=== PATIENT | female | born 1975 | race Caucasian/White ===

== ENCOUNTER 2022-07-06 10:57 | Emergency (ER) | payer OTHER, SELFPAY ==
--- NOTE | ~2022-07-06 | XR_ITS ---
EXAMINATION: XR HIP, RIGHT CLINICAL INFORMATION: Right hip pain. COMPARISON: None TECHNIQUE: Two views of the right hip. FINDINGS: Minimal bilateral hip degenerative joint changes are seen. There is no acute fracture or dislocation. The bony pelvis is intact. Partial visualization of posterior lumbar fusion hardware. XR/XR hip RT w PEL1V IMPRESSION: Minimal bilateral hip osteoarthritis. No acute fracture.
--- NOTE | ~2022-07-06 | XR_ITS ---
EXAMINATION: XR KNEE, RIGHT CLINICAL INFORMATION: Right knee pain. COMPARISON: None TECHNIQUE: Four views of the right knee. FINDINGS: Mild medial femoral-tibial and patellofemoral degenerative joint changes are seen. There is no acute fracture, dislocation or joint effusion. The soft tissues are unremarkable. XR/XR knee RT 4V IMPRESSION: Mild degenerative joint changes most consistent with osteoarthritis. No acute abnormality.
[2022-07-06 11:16] VITALS: BP 137/83; PULSE 76; RESP 17; TEMP 36.6; O2SAT 98; BMI 46.6
--- NOTE | 2022-07-06 13:45 | ED_ITS ---
HPI - Extremity Injury (Lower) General Chief Complaint: Extremity Injury, Lower Stated Complaint: R hip and knee pain Time Seen by Provider: 07/06/22 13:20 Source: patient Mode of arrival: ambulatory Limitations: no limitations History of Present Illness HPI Narrative: Patient is a 46-year-old female presenting with 10/10 nonradiating right hip and right knee pain for the past 3 months. The describes the pain as burning and sharp. Patient states that due to her knee pain she has been limping has been worsening her hip pain, which has been leading to low back pain. She reports movement, and weight-bearing activities worsen her pain. At rest her pain decreases to an 8/10. Patient reports she was seen by her PCP and Ortho at [facility]. She states that she was not eligible for injections due to lack of cartilage in her knee. She was diagnosed with osteoarthritis with wfny-ge-[id number] of right knee. Patient has been taking pdny-eyg-vajkrla Tylenol and ibuprofen. Patient states that she has fallen a few times in the past 3 months due to the pain, though denies any weakness. Patient endorses difficulty getting in and out of the car. Patient denies any history of trauma. No head strike or LOC with falls. Patient denies any loss of bowel or bladder function, and any saddle anesthesia. Patient able to ambulate with a steady gait, though limping on the right side. MD complaint: hip injury and knee injury Onset (ago): month(s) (3) Injury: Right: hip and knee Severity: severe Severity scale (1-10): >10 Relieving factors: NSAID Exacerbating factors: weight bearing, movement and palpation Associated symptoms: able to partially bear weight and ambulatory Other symptoms: none Treatments prior to arrival: NSAIDS Related Data Previous Rx's Medication Instructions Recorded prednisone 20 mg tablet 40 mg PO DAILY 5 days #10 tabs 07/06/22 Allergies Allergy/AdvReac Type Severity Reaction Status Date / Time Unable to Assess Allergy Unverified 07/06/22 13:28 Review of Systems Review of Systems: Constitutional : No Weight loss, No Fever, No Chills, No Fatigue, No Malaise ENT/Mouth : No sore throat, No Rhinorrhea Eyes: No Eye Pain, No Swelling, No Redness Cardiovascular : No Chest Pain, No SOB, No Dyspnea on Exertion, No Orthopnea, No Edema, No Palpitations Respiratory : No Cough, No Sputum, No Wheezing Gastrointestinal : No Nausea, No Vomiting, No Diarrhea, No Constipation, No abdominal Pain, No Hematochezia, No Melena Genitourinary : No Dysuria, No Urinary Frequency, No Hematuria, Musculoskeletal : + right hip and knee joint pain, No Myalgias, No Joint Swe lling Skin : No Skin Lesions, No rash Neuro : No Weakness, No Numbness, No Dizziness, No Headache Psych : No Anxiety/Panic, No Depression Heme/Lymph: No Bruising, No Bleeding,No Lymphadenopathy All other systems reviewed and are negative Yes all other systems are reviewed and are negative [facility] Past Medical History Attestation statement: The following information was validated with the patient. Source: old records reviewed and nursing notes reviewed Social History Social History Advance Directives: No Advance Directives Information Provided: No Physical Exam Vital Signs: Vital Signs: Last Vital Signs Temp 98 F 07/06/22 11:16 Pulse 76 07/06/22 11:16 Resp 17 07/06/22 11:16 BP 137/83 07/06/22 11:16 Pulse Ox 98 07/06/22 11:16 O2 Del Method 07/06/22 11:16 BMI result Body Mass Index 46.6 vss Appearance: Alert.? Oriented X3.? No acute distress.?Exam limted due to body habitus. Head: Normocephalic, atraumatic, no step-offs or deformities Eyes: Pupils equal, round and reactive to light.? Neck: Normal inspection.? Neck supple.? CVS: Normal heart rate and rhythm.? Pulses normal.? Respiratory: No respiratory distress.? Breath sounds normal.? Abdomen: Soft and nontender.? Skin: Skin warm and dry.? Normal skin color.? Normal skin turgor.? Extremities: No lower extremity edema.? No calf ttp. 5/5 strength to bilateral upper and lower extremities. Full rom to b/l knees and hips, no overlying skin changes. Right hip tender to palpation in the inguinal crest/SI region. Pain to palpation of proximal portion of tibia. Patela midline. -Valgus/Valrus stress, - Anterior/Posterior drawer. +Dm test. Back: No midline tenderness, no C-spine tenderness, full range of motion, no CVA tenderness bilaterally Neuro: Oriented X 3.? No motor deficit.? No sensory deficit. Steady gait, able to ambulate with a right sided limp. Course Reevaluation(s) Reevaluation #1: X-ray of the knee showing osteoarthritis. X-ray of bilateral hips with osteoarthritis as well. At this time patient will be discharged home on prednisone and pain meds. Advised return with new or worsening symptoms. Outlined worrisome signs and symptoms on discharge. Comfortable discharge home. Time: 14:24 MDM - Extremity Injury (Lower) MDM Narrative Medical decision making narrative: 1:30pm Patient is a 46 year old female with a recent diagnosis of osteoarthritis presenting with 10/10 right knee and hip pain. Patient takes OTC acetaminophen at home and uses a brace. DDX: this is likely osteoarthritis of the right hip and right knee. A soft tissue injury is possible, though based off HPI and exam, osteoarthritis is more likely. An X-ray of the hip and knee where ordered to rule out fracture. No signs of threatened limb, septic joint, acute ligament or tendon injury. No signs of cauda equina or epidural abscess. Plan: Patient will be given Toradol for pain, an x-ray of the right hip and knee will be obtained. I suspect patient will be discharged home with prednisone and pain control. Medical Records Attestation: I reviewed the patient's medical records. Lab Data Attestation: I reviewed the patient's lab results. Imaging Data Knee X-Ray: Radiologist's impression: FINDINGS: Mild medial femoral-tibial and patellofemoral degenerative joint changes are seen. There is no acute fracture, dislocation or joint effusion. The soft tissues are unremarkable.? XR/XR knee RT 4V IMPRESSION: Mild degenerative joint changes most consistent with osteoarthritis. No acute abnormality. Hip and Pelvis X-ray : Radiologist's impression: FINDINGS: Minimal bilateral hip degenerative joint changes are seen. There is no acute fracture or dislocation. The bony pelvis is intact. Partial visualization of posterior lumbar fusion hardware.? XR/XR hip RT w PEL1V IMPRESSION: Minimal bilateral hip osteoarthritis. No acute fracture. Critical Care Time Critical Care Time Critical Care Time: No Discharge Plan Discharge Clinical Impression: Osteoarthritis of right knee, Osteoarthritis of right hip Patient Disposition: Home, Self-Care Instructions: Osteoarthritis (ED), R.I.C.E. Treatment (ED), Steroid Joint Injection (DC), Knee Replacement (DC) Additional Instructions: You were seen in the Emergency department for chronic right sided hip and knee pain. This is likely due to your osteoarthritis. Please continue to use your brace, and take ibuprofen every 6 hours and acetaminophen every 4 hours. X-rays were performed which rule out any fracture or dislocation. Pain persists he may require an MRI for further evaluation and treatment. Provided [facility], Orthopedics, Pain management please follow-up for further workup and management. If you develop new or worsening symptoms please return to the emergency department or call 911. ?XR/XR knee RT 4V IMPRESSION: Mild degenerative joint changes most consistent with osteoarthritis. No acute abnormality. ? XR/XR hip RT w PEL1V IMPRESSION: Minimal bilateral hip osteoarthritis. No acute fracture. ? Prescriptions: New prednisone 20 mg tablet 40 mg PO DAILY 5 Days Qty: 10 0RF Referrals: [facility] [place] [facility] [[place] Group] [facility] [Provider Group] Hay Damon MD [Physician] - (Chronic 06/28 hip and knee pain) Stand Alone Forms: Work/School Release
[2022-07-06] MEDS: Ketorolac Tromethamine 30 MG/ML VIAL IM (14:54)
[2022-07-06] MEDS: Acetaminophen 325 MG TABLET 975 MG PO (14:55)
== END 2022-07-06 15:06 | disposition home or self-care (01) ==
PROVIDERS: Emergency Provider Emergency Medicine; PCP Internal Medicine
DX: M17.11 Unilateral primary osteoarthritis, right knee (principal); M16.11 Unilateral primary osteoarthritis, right hip; M25.552 Pain in left hip; M25.551 Pain in right hip
CPT/HCPCS: 73502; 73564; 96372; 99283; 99284; J1885

== ENCOUNTER 2023-07-26 09:13 | Emergency (ER) | payer OTHER, SELFPAY ==
--- NOTE | ~2023-07-26 | XR_ITS ---
EXAMINATION: XR KNEE, RIGHT CLINICAL INFORMATION: Pain COMPARISON: None available. TECHNIQUE: Four views of the right knee. FINDINGS: No fracture or joint effusion. Alignment is anatomic. There is moderate narrowing of the medial and patellofemoral joint compartments with associated marginal osteophytes. No abnormal soft tissue calcification. XR/XR knee RT 4V IMPRESSION: Moderate osteoarthritis of the medial and patellofemoral joint compartments.
[2023-07-26 09:24] VITALS: BP 134/77; PULSE 73; RESP 20; TEMP 36.2; O2SAT 97; BMI 47.1
[2023-07-26] MEDS: Ketorolac Tromethamine 30 MG/ML VIAL IM (11:15)
--- NOTE | 2023-07-26 11:22 | ED_ITS ---
HPI - General Adult General Chief complaint: Extremity Injury, Lower Stated complaint: R knee pain Time Seen by Provider: 07/26/23 09:48 Source: patient and RN notes reviewed Mode of arrival: ambulatory Limitations: no limitations History of Present Illness HPI narrative: This is a 47-year-old female, with no known past medical history, presenting to the emergency department with complaints of acute on chronic right knee pain. Patient has had no recent trauma or injury to her right knee. No recent falls. Patient states that she has had years of right knee pain, which she is seen [facility] for. 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 She states that she has gotten multiple knee injections without any relief. She has never had an MRI of her right knee. Patient has been taking Tylenol for her symptoms which has provided her with minimal relief. Denies any fevers, chills, or calf pain. No other complaints or concerns at this time. MD complaint: Acute on chronic right knee pain Onset (ago): day(s) Location: lower extremity Radiation: non-radiation Severity: moderate Quality: aching Pain Consistency: constant Relieving factors: none Exacerbating factors: none Associated symptoms: denies other symptoms Treatments prior to arrival: none Related Data Previous Rx's Medication Instructions Recorded prednisone 20 mg tablet 40 mg (2 x 20 mg) PO DAILY 5 days 07/06/22 #10 tabs Allergies Allergy/AdvReac Type Severity Reaction Status Date / Time No Known Allergies Allergy Verified 07/26/23 09:28 Review of Systems Review of Systems: Yes all other systems are reviewed and are negative PMFSH Past Medical History Attestation statement: The following information was validated with the patient. Social History Social History Advance Directives: No Physical Exam ED Vital Signs: Vital Signs - 24 hr 07/26/23 09:24 Temperature 97.2 F Pulse Rate 73 Respiratory Rate 20 Blood Pressure 134/77 Pulse Oximetry 97 Oxygen Delivery Method Room Air BMI result Body Mass Index 47.1 Const Other: General: Awake, alert, and oriented X3. No acute distress. HEENT: Normal inspection CVS: Normal heart rate and rhythm. Pulses normal. Respiratory: No respiratory distress Skin: Warm, dry, no rashes noted to exposed skin. Normal skin color. Normal skin turgor. Extremities: Right knee with tenderness to palpation along the right lateral joint line and inferior patellar region. Full range of motion of the left knee without difficulty. Pain with anterior drawer test and Apley grind test. No overlying skin changes, warmth. No calf tenderness. No palpable cords. Neuro: Oriented X 3. No motor deficit. No sensory deficit. Medications Administered Discontinued Medications Generic Name Dose Route Start Last Admin Trade Name Vaibhavq PRN Reason Stop Dose Admin Ketorolac Tromethamine 30 mg 07/26/23 11:10 07/26/23 11:15 Ketorolac Tromethamine 30 Mg/Ml Vial IM 07/26/23 11:11 30 mg ONCE ONE Administration Medical Decision Making Medical Decision Making [facility] Narrative: This is a 47-year-old female presenting to the emergency department for evaluation of acute on chronic right knee pain times 4 days. On arrival, vital signs within normal limits. Patient has tenderness with Apley grind and anterior drawer test. Concerning for possible meniscal injury versus osteoarthritis. No calf tenderness. She states that she has never had an MRI performed. She was previously seen by [facility], has never been seen by [facility]. Patient medicated with Toradol 30 mg IM in department. X-ray was performed showing osteoarthritis. Discussed these results with bernadette ent. Discharged with recommendations on taking Tylenol as needed as she is unable to take ibuprofen at home due to history of gastritis. Given referral, given return precautions. Patient stable for discharge. Differential Diagnosis Differential Diagnoses: The differential diagnosis associated with the presentation includes Osteoarthritis, knee strain, sprain, contusion, fracture-unlikely Radiology Impression Discussion of test interpretation with radiology: I have reviewed the radiologist's reading. Radiologist Impression: EXAMINATION: XR KNEE, RIGHT CLINICAL INFORMATION: Pain COMPARISON: None available. TECHNIQUE: Four views of the right knee. FINDINGS: No fracture or joint effusion. Alignment is anatomic. There is moderate narrowing of the medial and patellofemoral joint compartments with associated marginal osteophytes. No abnormal soft tissue calcification. XR/XR knee RT 4V IMPRESSION: Moderate osteoarthritis of the medial and patellofemoral joint compartments. Dictated By: Ada Wiley MD Discharge Plan Discharge Clinical Impression: Osteoarthritis of right knee Patient Disposition: Home, Self-Care Instructions: Osteoarthritis (ED) Additional Instructions: You were seen in the emergency room today due to right knee pain. We had medicated you with Toradol. Your right knee x-ray reveals moderate osteoarthritis. Please continue taking Tylenol as directed as needed for pain. Here ice can also help. Gentle range of motion and massage can also help. I am also giving your referral to Orthopedics, please call today to make an appointment. If any new or worsening symptoms occur, including but not limited to worsening knee pain, redness, swelling. Prescriptions: No Action prednisone 20 mg tablet 40 mg PO DAILY 5 Days Qty: 10 0RF [place] [facility] [place] [facility] [place] Group] Interventions: ED Discharge Assessment Last Done: 07/26/23 11:35 Discharge Date/Time: 07/26/23 11:37
== END 2023-07-26 11:37 | disposition home or self-care (01) ==
PROVIDERS: Emergency Provider Student in an Organized Health Care Education/Training Program
DX: M17.11 Unilateral primary osteoarthritis, right knee (principal); M25.561 Pain in right knee; E66.01 Morbid (severe) obesity due to excess calories; Z68.42 Body mass index [BMI] 45.0-49.9, adult
CPT/HCPCS: 73564; 96372; 99283; 99284; J1885

== ENCOUNTER 2023-08-16 12:20 | Outpatient (AMB) | payer OTHER, SELFPAY ==
--- NOTE | 2023-08-16 12:23 | MHC.OFFVIS ---
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 She describes her pain as sharp in nature. She did injure her knee over 1 year ago. She twisted her knee and had acute onset of pain. Since that time she has had both cortisone injections and viscosupplementation injections which gave her minimal relief. She has also done physical therapy for 12 weeks over the last 6 months which aggravated her pain. She has tried Tylenol and anti-inflammatory medicines which gave her minimal relief. She states that her right knee will give out several times per day. 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 Physical Exam Vital Signs: BMI result Body Mass Index 47.0 Const Other: Well-nourished well-developed very friendly female awake alert and oriented x3 in no acute distress Extrem Other: Bilateral lower extremity examination shows good capillary refill, no skin lesions noted, normal sensation light touch Right knee examination shows a minimal effusion, tenderness along her medial joint line, positive Dm's test, no instability Results Reviewed Results Reviewed: X-rays of the patient's right knee show mild joint space narrowing, no acute bony abnormalities Assessment & Plan Assessment & Plan (1) Right knee pain: Code(s): M25.561 - Pain in right knee Plan: Ms. Jacob presents with right knee pain and mechanical symptoms possibly due to a tear of her medial meniscus. Thus, I will send the patient for MRI of her right knee for further evaluation. I will see her back once the MRI is completed to discuss the findings and treatment options. Feel free to call me at any time should questions regarding her orthopedic management arise. Thank you very much for asking me to see this very friendly patient. I spent 22 minutes in reviewing the patient's records and imaging studies, seeing the patient and documenting in the medical record. Orders: Orders MR knee RT wo con Today M25.561 - Pain in right knee Coding Level of Care Code New Pt Level 2 (33328) Diagnoses Right knee pain M25.561
[2023-08-16 12:24] VITALS: BMI 47.0
== END 2023-08-16 12:54 | disposition home or self-care (01) ==
PROVIDERS: Visit Provider Orthopaedic Surgery
DX: M25.561 Pain in right knee (principal)
CPT/HCPCS: 99202

== ENCOUNTER → 2023-08-16 12:20 | Outpatient (BNVA) | payer OTHER, SELFPAY | PROVIDERS: Visit Provider Orthopaedic Surgery | DX: M25.561 Pain in right knee (principal) | CPT/HCPCS: 99202 ==

== ENCOUNTER 2023-08-22 13:16 | Outpatient (REF) | payer OTHER, SELFPAY ==
--- NOTE | ~2023-08-22 | MR_ITS ---
EXAMINATION: MR KNEE WITHOUT CONTRAST, RIGHT CLINICAL INFORMATION: Pain in the right knee. COMPARISON: Radiograph dated 07/26/2023. TECHNIQUE: MRI of the knee without contrast was performed using routine sequences on a high-field scanner. FINDINGS: MENISCI: Medial Meniscus: Posterior root is torn with partial medial extrusion of the body. A gap of 8 mm is present at the root avulsion. Degenerative intrasubstance signal is present within the medial meniscal body. Lateral Meniscus: There is ill-defined increased signal intensity at the undersurface of the posterior horn near the root, suggestive of undersurface partial tear with surrounding fraying. LIGAMENTS: Cruciate: PCL is thickened with increased intrasubstance signal. ACL is intact. Collateral: Intact EXTENSOR MECHANISM AND OTHER TENDONS: Intact tendinosis is evident at the origin of the medial head of the gastrocnemius. ARTICULAR CARTILAGE/BONE: Patellofemoral Compartment: There is mild nonuniform chondral thinning at the patella with small full-thickness fissures at the median ridge and moderate size marginal osteophytes. Additional [id number] nonuniform chondral thinning is present in the central trochlea with full-thickness fissures and underlying cortical irregularity as well as small marginal osteophytes. Medial Compartment: Focal high-grade cartilage loss at the medial femoral condyle weightbearing surface measures 1.2 x 0.9 cm in area and is associated with underlying cortical irregularity, sclerosis, and subchondral edema. There is more moderate surrounding cartilage loss in this region and [id number] nonuniform chondral thinning at the medial tibial plateau. Moderate-sized marginal osteophytes. Lateral Compartment: Small marginal osteophytes. Mild chondral thinning is present at the posterior margin of the lateral tibial plateau with minimal subchondral edema signal. Small foci of subcortical cystic change are present in the lateral femoral condyle adjacent to the intercondylar notch. JOINT FLUID AND BURSAE: Trace joint fluid is within normal limits. No effusion. Small rounded fluid signal foci along the medial margin of the tibial plateau may correspond to ganglion cysts or mild pes anserine bursitis. Trace fluid at a Brown's cyst. MR/MR knee RT wo con IMPRESSION: 1. Posterior root avulsion of the medial meniscus with partial extrusion of the meniscal body. 2. Omhd-jf-nksxzmet medial and patellofemoral compartment osteoarthritis. More minimal lateral compartment osteoarthritis. 3. Probable small undersurface partial tear of the posterior horn of the lateral meniscus near the root. 4. Thickened PCL with increased intrasubstance signal, most consistent with a mucoid degeneration.
== END 2023-08-22 13:17 | disposition home or self-care (01) ==
LOC: HO.MRI 13:16
PROVIDERS: Visit Provider Orthopaedic Surgery
DX: M25.561 Pain in right knee (principal)
CPT/HCPCS: 73721

== ENCOUNTER 2023-08-31 07:55 | Outpatient (AMB) | payer OTHER, SELFPAY ==
--- NOTE | 2023-08-31 07:59 | MHC.OFFVIS ---
Intake Vital Signs 08/31/23 08:00 Height 5 ft 2 in Weight 257 lb BMI 47.0 Intake Visit Reasons: ov- MRI Knee RT review Intake Note: Meliza is a 47 year old female who presents today for a MRI review of her right knee. She describes her right knee pain as sharp and severe in nature. Most of the pain is along the medial aspect of her knee. She did injure her right knee several years ago. She twisted her knee and had acute onset of pain. She has had injections in the past which gave her minimal relief. She has also done physical therapy which aggravated her pain. She states that her right knee will give out several times per day. 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 Exam Vital Signs: BMI result Body Mass Index 47.0 Const Other: Well-nourished well-developed very friendly female awake alert and oriented x3 in no acute distress Extrem Other: Bilateral lower extremity examination shows good capillary refill, no skin lesions noted, normal sensation light touch Right knee examination shows a minimal effusion, minimal crepitus with range of motion, tenderness along her medial joint line, positive Dm's test, no instability Results Reviewed Results Reviewed: MRI of the patient's right knee shows mild diffuse degenerative changes as well as a tear of her medial meniscus Assessment & Plan Assessment & Plan (1) Right knee pain: Code(s): M25.561 - Pain in right knee Plan Ms. Jacob presents with right knee pain and mechanical symptoms due to a tear of her medial meniscus. I had a lengthy discussion with the patient regarding the treatment options. At this point the patient's symptoms are tolerable to her. Activity modifications were discussed at length with the patient. If her symptoms do worsen in the future we will further discuss the risks and benefits of right knee arthroscopic surgery. Feel free to call me at any time should questions regarding her orthopedic management arise. I spent 22 minutes in reviewing the patient's records and imaging studies, seeing the patient and documenting in the medical record. Coding Level of Care Code Est Pt Level 2 (48255) Diagnoses Right knee pain M25.561
[2023-08-31 08:00] VITALS: BMI 47.0
== END 2023-08-31 08:33 | disposition home or self-care (01) ==
PROVIDERS: Visit Provider Orthopaedic Surgery
DX: M25.561 Pain in right knee (principal)
CPT/HCPCS: 99212

== ENCOUNTER → 2023-08-31 07:55 | Outpatient (BNVA) | payer OTHER, SELFPAY | PROVIDERS: Visit Provider Orthopaedic Surgery | DX: M25.561 Pain in right knee (principal) | CPT/HCPCS: 99212 ==

== ENCOUNTER 2024-03-11 08:12 | Emergency (ER) | payer OTHER, SELFPAY ==
[2024-03-11] VITALS (7 sets, daily range): BP systolic 116–128; BP diastolic 65–86; PULSE 70–105; RESP 14–16; TEMP 36.5–37.1; O2SAT 95–98; BMI 42.0
--- NOTE | ~2024-03-11 | CT_ITS ---
EXAMINATION: CT ABDOMEN AND PELVIS WITHOUT CONTRAST CLINICAL INFORMATION: Abdominal pain nausea vomiting COMPARISON: X-ray the pelvis and right hip June 2022. TECHNIQUE: Multidetector volumetric imaging was performed from the superior aspect of the liver through the pubic symphysis. Sagittal and coronal reformatted images were obtained on the technologist's workstation. This CT examination was performed using dose optimization techniques as appropriate, variously including the following: *Automated exposure control *Adjustment of mA and/or kV according to patient size (this includes techniques or standardized protocols for targeted exams where dose is matched to indication/reason for exam; i.e. extremities or head) *Use of iterative reconstruction technique DLP: 804 mGy-cm FINDINGS: LUNG BASES: The visualized lung bases are unremarkable. LIVER, GALLBLADDER, AND BILIARY TREE: The liver is normal in size, shape, and attenuation. No focal hepatic lesion or biliary ductal dilatation is present. The gallbladder is unremarkable with no evidence of radiopaque gallstones, gallbladder wall thickening, or obvious pericholecystic inflammatory changes. PANCREAS: Unremarkable. SPLEEN: Unremarkable. ADRENAL GLANDS: Unremarkable. KIDNEYS AND URETERS: The kidneys are normal in size, shape, and attenuation. No hydronephrosis, hydroureter, or calculi seen. No perinephric stranding. BLADDER: Unremarkable. GASTROINTESTINAL TRACT: Small hiatal hernia. Postsurgical changes of the stomach small bowel normal. Large bowel partially fluid-filled otherwise unremarkable. Appendix normal. ABDOMINAL WALL: No significant hernia is appreciated. LYMPH NODES: Normal. VASCULAR: Unremarkable. PELVIC VISCERA: Radiopaque intrauterine device noted. OSSEOUS STRUCTURES: Postoperative changes related to L4-L5 fusion hardware in place and interbody spacer Spondylosis of the partially visualized dorsal spine and upper lumbar spine Right hip: Mild to moderate osteoarthritis manifested by marginal osteophytes and acetabular subchondral cysts and nonuniform joint space narrowing most evident anteriorly. CT/CT abdomen pelvis wo IV con IMPRESSION: 1. No acute abnormality. 2. Postsurgical changes of the stomach. 3. Small hiatal hernia. 4. Osteoarthritis of the left hip with degenerative changes progressed compared to June 2022 and spondylosis of the thoracolumbar spine. Postoperative changes in the lumbar spine. Fleischner guidelines were followed.
[2024-03-11 08:47] LABS: MANUAL DIFF FLAG NO
[2024-03-11 09:00] LABS: Basophils Absolute Auto 0.1 X10*3/uL (0.0-0.2); Basophils Percent Auto 0.4 % (0-2); Eosinophils Absolute Auto 0.1 X10*3/uL (0.0-0.4); Eosinophils Percent Auto 0.4 % (0-4); Hematocrit 46.7 % (37.0-47.0); Hemoglobin 16.9 g/dl (12.0-16.0); Imm Gran Abs Auto 0.02 X10*3/uL (0.00-0.03); Imm Gran Pct Auto 0.2 % (0.0-0.4); Lymphocytes Absolute Auto 0.6 X10*3/uL (1.2-4.9); Lymphocytes Percent Auto 4.8 % (20-40); Mean Corpuscular HGB Conc 36.2 g/dl (31.0-35.0); Mean Corpuscular Hemoglobin 30.5 pg (27.0-33.0); Mean Corpuscular Volume 84.1 fL (80.0-98.0); Mean Platelet Volume 11.4 fL (9.4-12.3); Monocytes Absolute Auto 1.3 X10*3/uL (0.1-1.2); Monocytes Percent Auto 10.6 % (2-11); Neutrophils Absolute Auto 9.9 x10*3/uL (2.0-8.3); Neutrophils Percent Auto 83.6 % (45-73); Platelet Count 201 X10*3/uL (160-400); Red Blood Count 5.55 X10*6/uL (4.20-5.50); Red Cell Distribution Width 12.6 % (11.0-16.0); White Blood Count 11.8 X10*3/uL (4.8-10.8)
[2024-03-11 09:05] LABS: Alanine Aminotransferase 18 U/L (0-31); Albumin Level 4.7 g/dL (3.5-5.0); Alkaline Phosphatase 110 U/L (39-117); Anion Gap 18 (12-20); Aspartate Amino Transferase 20 U/L (5-31); Bilirubin Total 1.5 mg/dL (0.0-1.0); Blood Urea Nitrogen 12 mg/dL (9-16); Calcium 10.2 mg/dL (8.4-10.2); Carbon Dioxide 15 mmol/L (22-29); Chloride 106 mmol/L (96-108); Creatinine Clr Calc Pharmacy 102.3; Estimated Glomerular Filt Rate > 60; Glucose Random 151 mg/dL (60-115); Potassium 3.6 mmol/L (3.3-5.1); Sodium 135 mmol/L (135-145); Total Protein 8.5 g/dL (6.5-8.0)
--- NOTE | 2024-03-11 09:29 | ED.ABDPAIN ---
HPI - Abdominal Pain General Chief Complaint: Abdominal Pain Stated Complaint: Vomiting, diarrhea Time Seen by Provider: 03/11/24 08:51 Source: patient Mode of arrival: ambulatory Limitations: no limitations History of Present Illness ED Provider: DR. Shoemaker HPI narrative: 48-year-old female came in to the emergency department for evaluation of nausea, vomiting, and diarrhea with abdominal pain started 2 days ago, patient is unable to keep any oral food down because of the nausea and vomiting, patient also been having nonbloody watery diarrhea described as black in color. No other sick contacts, no exposure to a bat food. Last diarrhea was this morning. S/p sleeve gastrectomy many years ago. Related Data Home Medications ?Medication ?Instructions ?Recorded ?Confirmed hydroxyzine pamoate 25 mg capsule 25 mg PO DAILY PRN 08/16/23 08/31/23 omeprazole 20 mg capsule,delayed 20 mg PO DAILY 08/16/23 08/31/23 release sertraline 25 mg tablet 25 mg PO DAILY 08/16/23 08/31/23 Previous Rx's ?Medication ?Instructions ?Recorded prednisone 20 mg tablet 40 mg (2 x 20 mg) PO DAILY 5 days 07/06/22 #10 tabs ondansetron 4 mg disintegrating 4 mg PO Q8H PRN nausea and 03/11/24 tablet vomiting #7 tabs Allergies Allergy/AdvReac Type Severity Reaction Status Date / Time No Known Allergies Allergy Verified 03/11/24 08:28 Review of Systems Review of Systems All other systems are reviewed and are negative Constitutional: Reports as per HPI and Reports no additional constitutional complaints Eyes: Reports as per HPI and Reports no additional eye complaints Reports system reviewed and no additional complaints, except as documented Cardiovascular: Reports as per HPI and Reports no additional cardiovascular complaints Respiratory: Reports as per HPI and Reports no additional respiratory complaints Gastrointestinal: Reports as per HPI and Reports no additional gastrointestinal complaints Genitourinary: Reports no additional female genitourinary complaints Musculoskeletal: Reports no additional musculoskeletal complaints Skin/Breast: Reports system reviewed and no additional complaints, except as docu Psychiatric: Reports no additional psychiatric complaints Endocrine: Reports no additional endocrine complaints Hematologic/Lymphatic: Reports no additional hematologic/lymphatic complaints Allergic/Immunologic: Reports no additional allergic/immunologic complaints Reports system reviewed and no additional complaints, except as documented and Reports Abnormal speech present [facility] Social History Social History Patient Tobacco Use Status: Never used Tobacco Smoked in Last 30 Days: No Use of substances other than those prescribed or required for medical reasons: No Advance Directives: No Advance Directives Information Provided: No Current occupational status: employed 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 Blood pressure elevated. Heart rate normal. Respiratory rate normal. Temperature normal. Oxygen saturation normal. Appearance: Alert. Oriented X3. No acute distress. Head: Normal external exam. Normocephalic. Atraumatic. No Kramer signs noted. No raccoon eyes noted Eyes: PERRLA. EOMI. Conjunctiva and sclera normal. Eyelids normal. ENT: TM's Normal. Pharynx normal. Uvula midline. Moist mucous membranes. No trismus noted. No drooling noted. No muffled voice noted. Neck: Normal inspection. Neck supple. FROM. No adenopathy. Thyroid Normal. No meningeal signs. No neck mass noted. CVS: Normal heart rate and rhythm. Heart sound normal. No murmurs noted. Pulses normal throughout. Respiratory: No respiratory distress. Painless inspiration. Breath sounds normal. No wheezes/rales/rhonchi noted. Chest nontender. No accessory muscle usage noted or decreased air movement noted. Abdomen: Soft, diffuse tenderness with no rebound tenderness or guarding. Bowel sounds normal in all 4 quadrants. No distention noted. No organomegaly noted. No visible injury noted. Rectal exam: In the presence of female fertilizer loader, no stool in the vault. Back: No CVA tenderness. Full range of motion noted. Skin: Skin warm and dry. Normal skin color. Normal skin turgor. No rashes/lesions/lacerations noted. Extremities: No lower extremity edema. Extremities exhibit normal range of motion. Extremities nontender. Neuro: Oriented X 3. Cranial nerve exam: II-XII are grossly intact No motor deficit. No sensory deficit. Reflexes normal. Course Reevaluation(s) Reevaluation #1: 48-year-old female with symptoms suggesting gastroenteritis, CT abdomen and pelvis showing no acute abnormality. Patient feels better able to tolerate p.o. intake. Had 1 bowel movement in the ED patient described as yellow nonbloody. Time: 16:05 Medical Decision Making Differential Diagnosis Differential Diagnoses: The differential diagnosis associated with the presentation includes (Colitis, gastroenteritis, severe dehydration, SAIDA, electrolyte derangement, acute anemia.) Admission/Observation Consideration of admission/observation: Escalation of care including admission/observation considered Consult Healthcare Provider Management of the patient was discussed with: Hospitalist Lab Data MDM Lab Attestation statement: I reviewed the patient's lab results. 03/11/24 08:42 03/11/24 08:42 Labs: Lab Results 03/11/24 03/11/24 03/11/24 Range/Units 08:42 12:42 13:53 WBC 11.8 H (4.8-10.8) X10*3/uL RBC 5.55 H (4.20-5.50) X10*6/uL Hgb 16.9 H (12.0-16.0) g/dl Hct 46.7 (37.0-47.0) % MCV 84.1 (80.0-98.0) fL MCH 30.5 (27.0-33.0) pg MCHC 36.2 H (31.0-35.0) g/dl RDW 12.6 (11.0-16.0) % Plt Count 201 (160-400) X10*3/uL MPV 11.4 (9.4-12.3) fL Immature Gran % (Auto) 0.2 (0.0-0.4) % Neut % (Auto) 83.6 H (45-73) % Lymph % (Auto) 4.8 L (20-40) % [place] % (Auto) 10.6 (2-11) % Eos % (Auto) 0.4 (0-4) % Baso % (Auto) 0.4 (0-2) % Lymph # (Auto) 0.6 L (1.2-4.9) X10*3/uL [place] # (Auto) 1.3 H (0.1-1.2) X10*3/uL Eos # (Auto) 0.1 (0.0-0.4) X10*3/uL Baso # (Auto) 0.1 (0.0-0.2) X10*3/uL Abs Immat Gran (auto) 0.02 (0.00-0.03) X10*3/uL Absolute Neuts (auto) 9.9 H (2.0-8.3) x10*3/uL Absolute Nucleated RBC 0.000 (0.0-0.012) X10*3/uL Nucleated RBC % (auto) 0.0 (0.0-0.2) /100WBC Sodium 135 (135-145) mmol/L Potassium 3.6 (3.3-5.1) mmol/L Chloride 106 (96-108) mmol/L Carbon Dioxide 15 L (22-29) mmol/L Anion Gap 18 (12-20) BUN 12 (9-16) mg/dL Creatinine 0.77 (0.5-1.4) mg/dL Estim Creat Clear Calc 102.3 Estimated GFR > 60 Random Glucose 151 H (60-115) mg/dL Calcium 10.2 (8.4-10.2) mg/dL Total Bilirubin 1.5 H (0.0-1.0) mg/dL AST 20 (5-31) U/L ALT 18 (0-31) U/L Alkaline Phosphatase 110 (39-117) U/L Total Protein 8.5 H (6.5-8.0) g/dL Albumin 4.7 (3.5-5.0) g/dL Urine Color Yellow Urine Appearance Clear Urine pH 6.0 (5.0-9.0) Ur Specific [place] 1.010 (1.005-1.025) Urine Protein Negative (Neg-Trace) mg/dL Urine Glucose (UA) Negative (Negative) mg/dL Urine Ketones Negative (Negative) mg/dL Urine Blood Moderate (2+) H (Negative) Urine Nitrite Negative (Negative) Ur Leukocyte Esterase Small (1+) H (Negative) Urine RBC 3-5 H (0-2) /HPF Urine WBC 0-5 (0-5) /HPF Ur Squamous Epith Cells 3-5 (0-2) /HPF Urine Bacteria None Seen (None Seen) Hyaline Casts 3-5 (0-2) /LPF Urine Test NEGATIVE (NEGATIVE) Stool Occult Blood POSITIVE (NEGATIVE) C. difficile Tox B Gene NEGATIVE (Negative) Influenza Type A (PCR) NEGATIVE (Negative) Influenza Type B (PCR) NEGATIVE (Negative) RSV RNA Qual (PCR) NEGATIVE (Negative) SARS-CoV-2 RNA (RT-PCR) NEGATIVE (Negative) Medications Administered Discontinued Medications Generic Name Dose Route Start Last Admin Trade Name Freq PRN Reason Stop Dose Admin Acetaminophen 975 mg 03/11/24 12:55 03/11/24 13:03 Acetaminophen 325 Mg Tablet PO 03/11/24 12:56 975 mg ONCE ONE Administration Al Hydroxide/Mg Hydroxide 30 ml 03/11/24 09:27 03/11/24 09:43 Magnesium Hydrox/Alum Hydrox 30 Ml Oral.Susp PO 03/11/24 09:28 30 ml ONCE ONE Administration Famotidine 20 mg 03/11/24 09:27 03/11/24 09:44 Famotidine/Pf 20 Mg/2 Ml Vial IVPUSH 03/11/24 09:28 20 mg ONCE ONE Administration Sodium Chloride 1,000 mls @ 999 mls/hr 03/11/24 09:27 03/11/24 15:46 Ns IV 03/11/24 10:27 Infused .Q1H1M ONE Infusion Ondansetron HCl 4 mg 03/11/24 09:27 03/11/24 09:43 Ondansetron Hcl 4 Mg/2 Ml Vial IVPUSH 03/11/24 09:28 4 mg ONCE ONE Administration Discharge Plan Discharge Clinical Impression: Gastroenteritis Patient Disposition: Home, Self-Care Instructions: Gastroenteritis (ED) Prescriptions: New ondansetron 4 mg tablet,disintegrating 4 mg PO Q8H PRN (Reason: nausea and vomiting) Qty: 7 0RF No Action prednisone 20 mg tablet 40 mg PO DAILY 5 Days Qty: 10 0RF sertraline 25 mg tablet 25 mg PO DAILY hydroxyzine pamoate 25 mg capsule 25 mg PO DAILY PRN omeprazole 20 mg capsule,delayed release(DR/EC) 20 mg PO DAILY Stand Alone Forms: Work/School Release Print Language: Palestinian
[2024-03-11] MEDS: ondansetron HCL 4 MG/2 ML VIAL IVPUSH (09:43)
[2024-03-11] MEDS: Magnesium Hydrox/Alum Hydrox 30 ML ORAL.SUSP PO (09:43)
[2024-03-11 09:44] LABS: Influenza A PCR NEGATIVE (Negative); Influenza B PCR NEGATIVE (Negative); Resp Syncy Virus RNA Qual PCR NEGATIVE (Negative); SARS COV2 PCR INHOUSE NEGATIVE (Negative)
[2024-03-11] MEDS: 0.9 % Sodium Chloride 1,000 ML 999 ML IV (09:44)
[2024-03-11] MEDS: Famotidine/PF 20 MG/2 ML VIAL IVPUSH (09:44)
[2024-03-11 12:47] LABS: Appearance Urine Clear; Color Urine Yellow; Glucose Urine UA Negative (Negative); Leukocyte Esterase Urine Small (1+) (Negative); Nitrite Urine Negative (Negative); UMIC TRIGGER UACC YES; Urine Blood Moderate (2+) (Negative); Urine Ketones Negative (Negative); Urine Protein Negative (Neg-Trace)
[2024-03-11 12:54] LABS: Bacteria Urine None Seen (None Seen); UACC Culture Trigger YES; WBC Urine 0-5 /HPF (0-5)
[2024-03-11] MEDS: Acetaminophen 325 MG TABLET 975 MG PO (13:03)
[2024-03-11 14:01] LABS: OBS Int Ctl Valid YES; OBS1 POSITIVE (NEGATIVE)
[2024-03-11 14:10] LABS: UPreg QC Valid YES; Urine Pregnancy NEGATIVE (NEGATIVE)
--- NOTE | 2024-03-11 14:46 | PC.NURSE ---
right AC IV line was discontinued as not flushing at all, not infiltrated but not working, line pulled and new IV was established in right hand without incidience
[2024-03-11 14:52] LABS: CDiff Gene PCR NEGATIVE (Negative)
[2024-03-12 09:45] LABS: Adenovirus F 40/41 Not Detected (Not Detect.); Astrovirus Not Detected (Not Detect.); Cryptosporidium Not Detected (Not Detect.); Cyclospora cayetanensis Not Detected (Not Detect.); E. coli EAEC Not Detected (Not Detect.); E. coli EPEC Not Detected (Not Detect.); E. coli ETEC Not Detected (Not Detect.); E. coli O157 Not Detected (Not Detect.); E. coli STEC Not Detected (Not Detect.); Entamoeba histolytica Not Detected (Not Detect.); Giardia lamblia Not Detected (Not Detect.); Norovirus GI/GII Not Detected (Not Detect.); Plesiomonas shigelloides Not Detected (Not Detect.); Rotavirus A Not Detected (Not Detect.); Salmonella Not Detected (Not Detect.); Sapovirus Not Detected (Not Detect.); Shigella sp./EIEC Not Detected (Not Detect.); Vibrio Not Detected (Not Detect.); Vibrio Cholerae Not Detected (Not Detect.); Yersinia enterocolitica Not Detected (Not Detect.)
[2024-03-12 09:52] LABS: Campylobacter Detected (Not Detect.)
== END 2024-03-11 16:44 | disposition home or self-care (01) ==
PROVIDERS: Emergency Provider Emergency Medicine
DX: K52.9 Noninfective gastroenteritis and colitis, unspecified (principal); R11.2 Nausea with vomiting, unspecified; Z03.818 Encounter for observation for suspected exposure to other biological agents ruled out
CPT/HCPCS: 0241U; 74176; 80053; 81001; 81025; 82272; 85025; 87086; 87493; 87507; 96361; 96374; 96375; 99285; J2405